=== PATIENT | male | born 1975 | race American Indian/Alaskan Native ===

== ENCOUNTER 2020-04-25 16:47 | Emergency (ER) | payer BC ==
[2020-04-25] MEDS ORDERED: Orphenadrine 60 MG/2 ML Inj IM ONE (17:04)
--- NOTE | 2020-04-25 17:11 | EDM.PDOC ---
ED [facility] GENERAL MEDICAL PROBLEM - General Chief Complaint: Lower Extremity Injury/Pain Stated Complaint: right leg cramp Time Seen by Provider: 04/25/20 16:50 Source of Information: Reports: Patient History Limitations: Reports: No Limitations - History of Present Illness INITIAL COMMENTS - FREE TEXT/NARRATIVE: Emergency department complaints of right lower leg discomfort. Patient states that it is a cramping sensation is in his right upper thigh. He states that about approximately 14 years ago he did have a stent placed in the leg and did have some complications regarding muscle strain and complications afterwards. However he has not had anything in the last 10 years regarding that lower extremity. He states that it feels like a charley horse or a muscle strain on that lower extremity. He states that he does walk around a lot. He denies drinking large amounts of water. He states he is been relatively healthy and has no other major concerns or complaints. He states that if he is rubbing the muscle it does feel better. However if he is walking around the pain is more intense. Patient currently denies any chest pain, shortness of breath, dizziness, lightheadedness, blurred vision, abdominal pain, genitourinary concerns, peripheral edema. Patient also denies any active COVID-19 symptoms or recent exposures. Onset: Sudden Quality: Reports: Other Severity: Mild Improves with: Reports: None Worsens with: Reports: None Context: Reports: Other Associated Symptoms: Reports: No Other Symptoms ED ROS GENERAL - Review of Systems Review Of Systems: Comprehensive ROS is negative, except as noted in HPI. Constitutional: Reports: No Symptoms HEENT: Reports: No Symptoms Respiratory: Reports: No Symptoms Cardiovascular: Reports: No Symptoms Endocrine: Reports: No Symptoms GI/Abdominal: Reports: No Symptoms : Reports: No Symptoms Musculoskeletal: Reports: No Symptoms Skin: Reports: No Symptoms Neurological: Reports: No Symptoms Psychiatric: Reports: No Symptoms Hematologic/Lymphatic: Reports: No Symptoms Immunologic: Reports: No Symptoms ED EXAM, GENERAL - Physical Exam Exam: See Below Exam Limited By: No Limitations General Appearance: Alert, WD/WN, No Apparent Distress Eye Exam: Bilateral Eye: PERRL Head: Atraumatic, Normocephalic Respiratory/Chest: No Respiratory Distress, Lungs Clear, Chest Non-Tender Cardiovascular: Normal Peripheral Pulses, Regular Rate, Rhythm, No Edema Peripheral Pulses: 4+: Popliteal (L), Popliteal (R), Dorsalis Pedis (L), Dorsalis Pedis (R) Extremities: Normal Inspection, Normal Range of Motion, Non-Tender, No Pedal Edema, Normal Capillary Refill Neurological: Alert, Oriented, CN II-XII Intact, Normal Gait, No Motor/Sensory Deficits Psychiatric: Normal Affect, Normal Mood Skin Exam: Warm, Dry, Intact, Normal Color Course - Orders/Labs/Meds Meds: Medications Discontinued Medications Generic Name Dose Route Start Last Admin Trade Name Keely PRN Reason Stop Dose Admin Orphenadrine Citrate 60 mg 04/25/20 17:04 Norflex IM 04/25/20 17:05 ONETIME ONE Departure - Departure Time of Disposition: 17:25 Disposition: Home, Self-Care 01 Condition: Good Clinical Impression: Muscle cramp - Discharge Information *PRESCRIPTION DRUG MONITORING PROGRAM REVIEWED*: Not Applicable *COPY OF PRESCRIPTION DRUG MONITORING REPORT IN PATIENT KAZ: Not Applicable Instructions: Muscle Cramps and Spasms, [id number], Orphenadrine injection Forms: ED Department Discharge Additional Instructions: 1. rest 2. Continue all at home medications 3. Activity and diet as tolerated 4. Can take over the counter Tylenol for any pain or discomfort 5. use ice or heat for 20 minutes at a time 3-4 times a day 6. Follow up with PCP if symptoms continue, return, or progress 7. Call with any questions or concerns - Assessment/Plan Assessment:: 1. muscle cramp/strain Plan: 1. Norflex IM given in ER 2. Education regarding splinting, activity, [id number] medications, and follow-up care provided. 3. All questions and concerns addressed with the patient prior to discharge
[2020-04-25] MEDS ORDERED: cefTRIAXone 1 GM, Lidocaine 1% 2.1 ML IM ONE ×2 (17:34)
== END 2020-04-25 18:03 | disposition home or self-care (01) ==
LOC: VM.ED 16:47
DX: R25.2 Cramp and spasm (principal)
CPT/HCPCS: 96372; 99283; J2360